=== PATIENT | male | born 1975 | race Two or more races ===

== ENCOUNTER 2022-12-03 06:41 | Day surgery (SDC) | payer OTHER | END 2022-12-03 11:30 | disposition home or self-care (01) | LOC: AMB-ENDOS 06:41 | PROVIDERS: ATTEND Colon & Rectal Surgery | DX: K62.1 Rectal polyp (principal); R19.5 Other fecal abnormalities; K64.8 Other hemorrhoids; Z20.822 Contact with and (suspected) exposure to COVID-19 ==